=== PATIENT | female | born 1945 | race Caucasian/White ===

== ENCOUNTER 2016-08-25 01:14 | Inpatient (IN) | payer MEDICARE ==
[~2016-08-25] VITALS: Ht 167.6 cm; Wt 104.8 kg
[2016-08-25] MEDS ORDERED: GLIM4TAB PO (01:34)
[2016-08-25] MEDS ORDERED: DYAZ37.5 PO (01:34)
[2016-08-25] MEDS ORDERED: ADV250INH INH (01:34)
[2016-08-25] MEDS ORDERED: METF1000 PO (01:34)
[2016-08-25] MEDS ORDERED: BENA40TA2 PO (01:34)
[2016-08-25] MEDS ORDERED: BREO1INH INH (01:34)
[2016-08-25] MEDS ORDERED: VITA250L PO (01:34)
[2016-08-25] MEDS ORDERED: NS 1,000 ML IV ONE (02:00)
[2016-08-25] MEDS: MORPHINE 4 MG/ML 1ML SYRINGE IV PRN ×2 (02:11→02:50)
[2016-08-25 02:26] LABS: ALBUMIN 3.4 GM/DL (3.2-5.2); ALKALINE PHOSPHATASE 52 U/L (45-117); ALT/SGPT 22 U/L (12-78); ANION GAP 9 MEQ/L (8-16); AST/SGOT 15 U/L (15-37); BILIRUBIN,DIRECT < 0.1 MG/DL (0.0-0.2); BILIRUBIN,TOTAL 0.3 MG/DL (0.2-1.0); BLOOD UREA NITROGEN 18 MG/DL (7-18); CALCIUM LEVEL 8.9 MG/DL (8.8-10.2); CARBON DIOXIDE LEVEL 28 MEQ/L (21-32); CHLORIDE LEVEL 101 MEQ/L (98-107); CREATININE FOR GFR 0.91 MG/DL (0.55-1.02); GLOMERULAR FILTRATION RATE > 60.0 (>39); GLUCOSE, FASTING 161 MG/DL (83-110); POTASSIUM SERUM 3.9 MEQ/L (3.5-5.1); SODIUM LEVEL 138 MEQ/L (136-145); TOTAL PROTEIN 6.8 GM/DL (6.4-8.2)
[2016-08-25 02:52] LABS: BASO # 0.2 K/mm3 (0.0-0.2); BASO % 1.1 % (0.0-1.0); EOS # 0.6 K/mm3 (0.0-0.50); EOS % 4.3 % (0.0-3.0); LARGE UNSTAINED CELL # 0.2 K/mm3 (0.0-0.4); LARGE UNSTAINED CELL % 1.1 % (0.0-4.0); LYMPH # 2.3 K/mm3 (1.5-4.5); LYMPH % 17.7 % (24.0-44.0); MEAN CORPUSCULAR HEMOGLOBIN 26.8 pg (27.0-33.0); MEAN CORPUSCULAR VOLUME 83.9 fl (80.0-96.0); MONO # 0.6 K/mm3 (0.0-0.8); MONO % 4.6 % (0.0-5.0); NEUTROPHILS # 9.4 K/mm3 (1.8-7.7); NEUTROPHILS % 71.2 % (36.0-66.0); PLATELET COUNT, AUTOMATED 272 k/mm3 (150-450); RED CELL DISTRIBUTION WIDTH 14.1 % (11.5-14.5); WHITE BLOOD COUNT 11.2 K/mm3 (4.0-10.0)
[2016-08-25] MEDS ORDERED: ISOVUE-370 76% 100ML VIAL (Q9967) As Ordered ONE (03:11)
--- NOTE | 2016-08-25 04:10 | REPUSA ---
CLINICAL HISTORY: Abdominal pain. TECHNIQUE: Multiple axial, sagittal and coronal CT images were obtained through the abdomen and pelvi s after administration of intravenous contrast material. COMMENTS: The liver is mildly enlarged but decreased attenuation without mass or defect. There is mild biliary ductal dilatation. The spleen is normal. The gallbladder is surgically absent. The pancreas is of nor mal contour and attenuation characteristics. There is no evidence of adrenal mass. Both kidneys demonstrate prompt and equal nephrograms. The kidneys are normal in size, shape and conf iguration. There is no evidence of renal or ureteral mass. No renal or ureteral calculi are identifie d. There is no hydroureter or hydronephrosis. No evidence for appendicitis. There is distal small bowel wall thickening. No evidence for small or large bowel obstruction. There is no evidence of abdominal ascites or lymphadenopathy. There is no evidence of intrinsic or extrinsic bladder mass. There is no pelvic ascites or lymphadeno angy. Hysterectomy. Images of the lung bases show no evidence of pleural or parenchymal mass. There are no pleural effusi ons. The bony structures are free of lytic or blastic lesions. Multilevel degenerative changes are seen in volving the thoracolumbar spine. Scattered calcifications are seen involving the aorta and major bran ches compatible with atherosclerosis. IMPRESSION: Thickened distal small bowel suggestive of enteritis. Cholecystectomy. Mild degenerative dilation. Thank you for your kind referral of this patient.
[2016-08-25] MEDS ORDERED: VITA500T3 PO (05:21)
[2016-08-25] MEDS ORDERED: IPRASOL4 IN (05:24)
[2016-08-25] MEDS ORDERED: FURO20TA2 PO (05:24)
[2016-08-25] MEDS ORDERED: VITA100037 PO (05:24)
[2016-08-25] MEDS ORDERED: FLON1SPR (05:24)
[2016-08-25] MEDS ORDERED: PROA1AER INH (05:24)
[2016-08-25] MEDS ORDERED: MECL25CH PO (05:24)
[2016-08-25] MEDS ORDERED: OXYB5TA PO (05:24)
[2016-08-25] MEDS ORDERED: NS 1,000 ML IV SCH (05:31)
[2016-08-25] MEDS ORDERED: ONDANSETRON 4MG/2ML VIAL (J2405) IV PRN (05:45)
--- NOTE | 2016-08-25 05:57 | HPEPDOC ---
General Date of Admission Primary Care Physician: Gordon Longoria Attending Physician: DARRELL YU MD Chief Complaint The patient is a 70-year-old female admitted with a reason for visit of Abd Pain. Source: Patient Exam Limitations: No limitations Timing/Duration: Day(s) (2) Severity: Severe Associated Symptoms: Loss of appetite, Nausea History of Present Illness 70-year-old female, history of diabetes mellitus, asthma, arthritis, presented with acute onset of for abdominal pain. Evidently pain is generally by 10 in intensity, nonradiating, associated with nausea. There is no diarrhea or constipation, fever or chills. Pain is sharp in nature. There is no hematuria. No history of kidney Danya cornerstones. Patient has history of for cholecystectomy Home Medications Scheduled (Flonase Allergy Relief) 50 Mcg/Act Spr, 2 SPRAYS NA DAILY, (Reported) Benazepril HCl (Benazepril HCl) 40 Mg Tab, 40 MG PO DAILY, (Reported) Cyanocobalamin (Vitamin B-12) 500 Mcg Tab, 500 MCG PO DAILY, (Reported) Fluticasone/Vilanterol (Breo Ellipta 100-25 Mcg/INH) 1 Inh Inh, 1 PUFF INH DAILY , (Reported) Glimepiride (Glimepiride) 4 Mg Tab, 4 MG PO QPM, (Reported) Hydrochlorothiazide W/Triamter (Dyazide 37.5-25 mg) 1 Cap Cap, 1 CAP PO DAILY, ( Reported) Metformin Hydrochloride (Metformin HCl) 1,000 Mg Tab, 1,000 MG PO BID, (Reported ) Oxybutynin Chloride (Oxybutynin Chloride) 5 Mg Tab, 5 MG PO BID, (Reported) Vitamin D (Vitamin D) 1,000 Unit Cap, 1,000 UNIT PO DAILY, (Reported) Scheduled PRN Albuterol Sulfate (Proair Hfa) 108 Mcg/Act Aer, 2 PUFF INH Q4H PRN for SHORTNESS OF BREATH, (Reported) Albuterol/Ipratropium (Ipratropium [place]/Albut 0.5-2.5 (3) mg/3Ml) 1 Elizabeth Elizabeth, 1 VIAL IN QID PRN for SHORTNESS OF BREATH, (Reported) Furosemide (Furosemide) 20 Mg Tab, 20 MG PO DAILY PRN for LEG SWELLING, ( Reported) Meclizine Hcl (Meclizine HCl) 25 Mg Chw, 25 MG PO BID PRN for VERTIGO/DIZZINESS, (Reported) Allergies Coded Allergies: Codeine (Verified Allergy, Severe, DIFFICULTY BREATHING, 05/19/13) HMG-CoA-R Inhibitors (Verified Adverse Reaction, Intermediate, MUSCLE ACHES, 05/19/13) Past Medical History Medical History Diabetes mellitus, asthma, arthritis Surgical History Cholecystectomy, hysterectomy, ankle surgery, renal stent Family History Significant Family History: Renal disease Social History * Smoker: Denies Alcohol: Denies Drugs: denies Recent Travel/Sick Contacts: Denies: Recent travel, Recent sick contacts Psychosocial History: No pertinent psych hx Review of Symptoms Constitutional: Denies: Chills, Fever, Night Sweats Eyes: Denies: Pain, Vision change ENT: Denies: Head Aches, Ear Pain, Dysphagia Skin: Denies: Rash, Lesions, Breakdown Pulmonary: Denies: Dyspnea, Cough Cardiovascular: Denies: Chest Pain, Palpitations, Orthopnea, Paroxysmal Noc. Dyspnea, Lt Headedness Gastrointestinal: Reports: Nausea, Abdominal Pain, Denies: Vomiting, Diarrhea Genitourinary: Denies: Dysuria, Frequency, Incontinence, Retention Hematologic: Denies: Bruising, Bleeding Excessively Musculoskeletal: Denies: Neck Pain, Back Pain, Joint Pain, Muscle Pain, Spasms Neurological: Denies: Weakness, Numbness, Change in speech, Confusion Psych: Reports: Mood Normal, Denies: Depression, Memory Issues Physical Examination General Exam: Positive: Alert, Moderate Distress Eye Exam: Positive: PERRLA, Conjunctiva & lids normal, EOMI, Negative: Sclera icteric ENT Exam: Positive: Atraumatic, Mucous membr. moist/pink, Pharynx Normal Neck Exam: Positive: Supple, Negative: JVD, thyromegaly Chest Exam: Positive: Clear to auscultation, Normal air movement Heart Exam: Positive: Rate Normal, Regular Rhythm, Normal S1, Normal S2, Negative: Murmurs, Rubs Telemetry: Positive: No significant arrhythmia Abdomen Exam: Positive: BS Hypoactive, Soft, Tenderness, Negative: Hepatospenomegaly Extremity Exam: Positive: Normal pulses, Negative: Clubbing, Cyanosis, Edema Skin Exam: Positive: Nl turgor and temperature, Negative: Breakdown, Lesion Neuro Exam: Positive: Normal Speech, Cranial Nerves 3-12 NL, Reflexes 2+ Psych Exam: Positive: Mental status NL, Mood NL, Oriented x 3 Vital Signs Vital Signs Date Time Temp Pulse Resp B/P (MAP) Pulse Ox O2 Delivery O2 Flow Rate FiO2 08/25/16 03:55 16 90 08/25/16 03:54 90 08/25/16 03:04 118/58 (78) 08/25/16 01:21 98.2 Room Air Laboratory Data Labs 24H Laboratory Tests 2 08/25/16 01:46: White Blood Count 11.2H, Red Blood Count 4.92, Hemoglobin 13.2, Hematocrit 41.3 , Mean Corpuscular Volume 83.9, Mean Corpuscular Hemoglobin 26.8L, Mean Corpuscular Hemoglobin Concent 32.0, Red Cell Distribution Width 14.1, Platelet Count 272, Neutrophils (%) (Auto) 71.2H, Lymphocytes (%) (Auto) 17.7L, Monocytes (%) (Auto) 4.6, Eosinophils (%) (Auto) 4.3H, Basophils (%) (Auto) 1.1H , Neutrophils # (Auto) 9.4H, Lymphocytes # (Auto) 2.3, Monocytes # (Auto) 0.6, Eosinophils # (Auto) 0.6H, Basophils # (Auto) 0.2, Large Unclassified Cells % 1.1, Large Unclassified Cells # 0.2, Urine Appearance CLEAR, Urine Color STRAW, Urine pH 5.0, Urine Specific [place] 1.009, Urine Protein NEGATIVE, Urine Glucose (UA) NEGATIVE, Urine Ketones NEGATIVE, Urine Urobilinogen 0.2, Urine Bilirubin NEGATIVE, Urine Leukocyte Esterase 2+H, Urine Blood NEGATIVE, Urine Nitrite NEGATIVE, Urine WBC (Auto) 13H, Urine RBC (Auto) 1, Urine Hyaline Casts (Auto) 0, Urine Bacteria (Auto) 1+H, Urine Squamous Epithelial Cells 0, Urine Sperm (Auto) , Anion Gap 9, Glomerular Filtration Rate > 60.0, Lactic Acid Level 1.8, Calcium Level 8.9, Aspartate Amino Transf (AST/SGOT) 15, Alanine Aminotransferase (ALT/SGPT) 22, Alkaline Phosphatase 52, Total Bilirubin 0.3, Direct Bilirubin < 0.1, Total Creatine Kinase 48, Creatine Kinase MB 1.0, Creatine Kinase MB Relative Index 2.08, Troponin I < 0.02, Total Protein 6.8, Albumin 3.4, Albumin/Globulin Ratio 1.00, Lipase 653H CBC/BMP Laboratory Tests 08/25/16 01:46 Red Blood Count 4.92, Mean Corpuscular Volume 83.9, Mean Corpuscular Hemoglobin 26.8 L, Mean Corpuscular Hemoglobin Concent 32.0, Red Cell Distribution Width 14.1, Neutrophils (%) (Auto) 71.2 H, Lymphocytes (%) (Auto) 17.7 L, Monocytes (% ) (Auto) 4.6, Eosinophils (%) (Auto) 4.3 H, Basophils (%) (Auto) 1.1 H, Neutrophils # (Auto) 9.4 H, Lymphocytes # (Auto) 2.3, Monocytes # (Auto) 0.6, Eosinophils # (Auto) 0.6 H, Basophils # (Auto) 0.2 Microbiology Microbiology 08/25/16 Blood Culture, Received Pending 08/25/16 Blood Culture, Received Pending 08/25/16 Urine Culture, Received Pending Assessment/Plan 70-year-old female, history of for diabetes mellitus arthritis, presented with abdominal pain and found to have pancreatitis and enteritis Problems (1) Acute pancreatitis Status: Acute Problem Text: Lipase 653 . Continue nothing by mouth, IV normal saline at 100 mL per hour. TREND Lipase (2) Enteritis Problem Text: CT abdomen showed Thickened distal small bowel suggestive of enteritis thickened distal small bowel suggestive of enteritis. started IV Cipro and Flagyl Plan / VTE VTE Prophylaxis Ordered?: Yes Plan Diet: Make NPO Activity: Continue Current Anticipated Discharge: Home NATALIE SAMSON MD Aug 25, 2016 05:57
[2016-08-25] MEDS: metroNIDAZOLE 500 MG in APPROPRIATE DILUENT 1 EA IV SCH ×3 (06:00→21:27)
[2016-08-25 08:00] VITALS: BP 146/84
[2016-08-25] MEDS: HEPARIN SOD (PORCINE) 5000 UNITS/ML VIAL SC SCH ×3 (08:58→21:29)
[2016-08-25] MEDS: CIPROFLOXACIN 400 MG in APPROPRIATE DILUENT 1 EA IV SCH ×2 (08:58→20:06)
[2016-08-25] MEDS: ADVAIR DISKUS 250/50 INH PWD INH SCH ×2 (09:00→19:35)
[2016-08-25] MEDS: ACETAMINOPHEN TAB 650MG DOSE (2X325MG) PO PRN ×2 (09:18→17:53)
[2016-08-25 14:00] VITALS: BP 134/74
[2016-08-25] MEDS ORDERED: IPRATROPIUM 0.5MG/ALBUTEROL 2.5MG INH SOL UD 3ML (DUONEB)(J7620) INH PRN (14:00)
[2016-08-25] MEDS ORDERED: FUROSEMIDE 20 MG TAB PO PRN (14:00)
[2016-08-25] MEDS ORDERED: ALBUTEROL 90 MCG/ACT 8GM HFA INHALER INH PRN (14:00)
--- NOTE | 2016-08-25 14:05 | IPNPDOC ---
Text Note Date of Service The patient was seen on 08/25/16. NOTE Subjective: Patient is a 70 year old female with a PMHx of Asthma, NIDDM2, Overactive bladder, HTN, Osteoarthritis and Vitamin D deficiency who presented to the ER with complaints of 1 day history of abdominal pain. She noted her abdominal pain was at the L and R LQ, noted initially as a 10/10, burning / sharp like pain. She noted that she was nauseated, but no vomiting. She denied any constipation, diarrhea or fevers at home. She was admitted to the floor for enteritis and possible pancreatitis. Patient was seen and examined at the bedside. She notes her abdominal pain has been resolving. She is no longer having any nausea. Objective: Vitals (See below) General: Lying in bed, no acute distress, comfortable, AAOx3 HEENT: NC, AT CVS: RRR, +S1S2 Lungs: Fair air entry b/l, -w/r/r Abdomen: Soft, ND, no tenderness elicited on physical exam, +BSx4 Extremities: +PPx4, - Edema, - Calf tenderness Assessment and plan: 1. Abdominal pain - likely 2/2 enteritis, less likely 2/2 acute pancreatitis - Presented with one day history of lower abdominal pain and nausea - Denied history of vomiting, diarrhea or fevers - Physical currently did not reveal any abdominal tenderness - Labs reveals elevation in Lipase of 653 (<3x upper limit of normal) - CT abdomen/pelvis 08/25: thickened distal small bowel - suggestive of enteritis , cholecystectomy, mild degenerative dilation - Has been started on Ciprofloxacin / Flagyl in ER and received aggressive IV fluid hydration - Will stop IV fluids at this time - Will start on Liquid clear diet 2. Asthma - c/w Albuterol PRN - Will substitute Breo with Advair while inpatient 3. NIDDM2 - Will hold home oral medications - Will start ISS 4. Overactive bladder - Will c/w oxybutynin 5. HTN - BP well controlled - Will hold diuretics for now - c/w Benazapril with holding parameters 6. Osteoarthritis - c/w Tylenol PRN 7. Vitamin D deficiency - c/w Vitamin D supplementation 8. GI prophylaxis - will start protonix 9. DVT prophylaxis - c/w Heparin VS,Fishbone, I+O VS, Fishbone, I+O Laboratory Tests 08/25/16 01:46 Red Blood Count 4.92, Mean Corpuscular Volume 83.9, Mean Corpuscular Hemoglobin 26.8 L, Mean Corpuscular Hemoglobin Concent 32.0, Red Cell Distribution Width 14.1, Neutrophils (%) (Auto) 71.2 H, Lymphocytes (%) (Auto) 17.7 L, Monocytes (% ) (Auto) 4.6, Eosinophils (%) (Auto) 4.3 H, Basophils (%) (Auto) 1.1 H, Neutrophils # (Auto) 9.4 H, Lymphocytes # (Auto) 2.3, Monocytes # (Auto) 0.6, Eosinophils # (Auto) 0.6 H, Basophils # (Auto) 0.2 Vital Signs Date Time Temp Pulse Resp B/P (MAP) Pulse Ox O2 Delivery O2 Flow Rate FiO2 08/25/16 10:00 Room Air 08/25/16 08:00 20 08/25/16 08:00 97.2 74 146/84 (104) 93 DARRELL YU MD Aug 25, 2016 14:05
[2016-08-25] MEDS ORDERED: GLUCAGON FOR INJ 1 MG VIAL (J1610) SC PRN (14:15)
[2016-08-25] MEDS ORDERED: DEXTROSE 50% 50 ML SYRINGE IV PRN (14:15)
[2016-08-25] MEDS ORDERED: GLUCOSE 4 GM CHEW TABLET PO PRN (14:15)
[2016-08-25 14:33] VITALS: BP 134/74
[2016-08-25] MEDS: BENAZEPRIL 20 MG TAB PO SCH (14:33)
[2016-08-25] MEDS: oxyBUTYnin 5 MG TAB PO SCH ×2 (14:33→20:07)
[2016-08-25] MEDS: PANTOPRAZOLE 40MG TAB (PROTONIX) PO SCH (14:33)
[2016-08-25] MEDS: CYANOCOBALAMIN 500 MCG TAB PO SCH (14:33)
[2016-08-25] MEDS: VITAMIN D 1,000 INTERNATIONAL UNITS TABLET PO SCH (14:38)
[2016-08-25] MEDS: FLUTICASONE PROP 0.05% NASAL SPRAY 16 GM (FLONASE) SCH (16:45)
[2016-08-25] MEDS: HumaLOG INSULIN (NovoLOG) PER UNIT SC SCH (17:47)
[2016-08-25 20:13] VITALS: BP 122/59
[2016-08-25] MEDS ORDERED: HumaLOG INSULIN (NovoLOG) PER UNIT SC SCH (21:00)
[2016-08-26] MEDS: metroNIDAZOLE 500 MG in APPROPRIATE DILUENT 1 EA IV SCH (05:10)
[2016-08-26] MEDS: HEPARIN SOD (PORCINE) 5000 UNITS/ML VIAL SC SCH (05:10)
[2016-08-26 05:22] VITALS: BP 145/68
[2016-08-26] MEDS: ACETAMINOPHEN TAB 650MG DOSE (2X325MG) PO PRN (06:17)
[2016-08-26 06:19] LABS: MEAN CORPUSCULAR HEMOGLOBIN 27.8 pg (27.0-33.0); MEAN CORPUSCULAR VOLUME 84.3 fl (80.0-96.0); RED CELL DISTRIBUTION WIDTH 14.5 % (11.5-14.5); WHITE BLOOD COUNT 6.2 K/mm3 (4.0-10.0)
[2016-08-26 06:45] LABS: ALBUMIN 2.9 GM/DL (3.2-5.2); ALKALINE PHOSPHATASE 46 U/L (45-117); ALT/SGPT 20 U/L (12-78); ANION GAP 5 MEQ/L (8-16); AST/SGOT 17 U/L (15-37); BILIRUBIN,TOTAL 0.2 MG/DL (0.2-1.0); BLOOD UREA NITROGEN 9 MG/DL (7-18); CALCIUM LEVEL 8.4 MG/DL (8.8-10.2); CARBON DIOXIDE LEVEL 30 MEQ/L (21-32); CHLORIDE LEVEL 109 MEQ/L (98-107); CREATININE FOR GFR 0.75 MG/DL (0.55-1.02); GLOMERULAR FILTRATION RATE > 60.0 (>39); GLUCOSE, FASTING 169 MG/DL (83-110); MAGNESIUM LEVEL 1.8 MG/DL (1.8-2.4); SODIUM LEVEL 144 MEQ/L (136-145); TOTAL PROTEIN 5.8 GM/DL (6.4-8.2)
[2016-08-26] MEDS: HumaLOG INSULIN (NovoLOG) PER UNIT SC SCH (07:48)
[2016-08-26] MEDS: VITAMIN D 1,000 INTERNATIONAL UNITS TABLET PO SCH (07:48)
[2016-08-26] MEDS: oxyBUTYnin 5 MG TAB PO SCH (07:48)
[2016-08-26] MEDS: CYANOCOBALAMIN 500 MCG TAB PO SCH (07:48)
[2016-08-26] MEDS: PANTOPRAZOLE 40MG TAB (PROTONIX) PO SCH (07:48)
[2016-08-26] MEDS: CIPROFLOXACIN 400 MG in APPROPRIATE DILUENT 1 EA IV SCH (07:49)
[2016-08-26] MEDS: BENAZEPRIL 20 MG TAB PO SCH (07:49)
[2016-08-26] MEDS: ADVAIR DISKUS 250/50 INH PWD INH SCH (07:56)
[2016-08-26] MEDS: FLUTICASONE PROP 0.05% NASAL SPRAY 16 GM (FLONASE) SCH (09:00)
[2016-08-26] MEDS ORDERED: FLAG500T PO (10:06)
[2016-08-26] MEDS ORDERED: CIPR250T3 PO (10:06)
--- NOTE | 2016-08-26 19:26 | DSES ---
DATE OF ADMISSION: 08/26/2015 DATE OF DISCHARGE: 08/26/2016 ATTENDING PHYSICIAN: Douglas Dalal MD PRIMARY CARE PROVIDER: Unknown. REFERRING PHYSICIAN: None. CONSULTING PHYSICIANS: None. CONDITION ON DISCHARGE: Stable. FINAL DIAGNOSES: Abdominal pain likely secondary to enteritis, less likely secondary to acute pancreatitis. PROCEDURES: None. HISTORY OF PRESENT ILLNESS: The patient is a 70-year-old female with a past medical history of asthma and non-insulin dependent diabetes mellitus type 2, overactive bladder, hypertension, osteoarthritis and vitamin D deficiency who presented to the emergency room with complaints of one day history of abdominal pain. She noted that her abdominal pain was in the left and right lower quadrants and noted initially a 10 out of 10, burning and sharp-like pain. She noted that she was nauseated, but did not vomit. She denies any constipation, diarrhea or fever at home. She was admitted to the floor for enteritis and possible pancreatitis. HOSPITAL COURSE: 1. Abdominal pain, likely enteritis, less likely acute pancreatitis presented with one day history of lower abdominal pain and nausea. Denied history of vomiting, diarrhea or fevers. Physical did not reveal any abdominal tenderness. Labs revealed initially a lipase of 653 which is not greater than 3 times the upper limits of normal to suggest pancreatitis. On discharge her lipase levels have normalized. CT scan of her abdomen and pelvis on 08/25/2016 noted that there was thickened distal small bowel suggestive of enteritis. There was also noted to be cholecystectomy and mild degenerative dilatation, however, there is no notes on the pancreas. The patient was started on ciprofloxacin and Flagyl in the emergency room and received a dose of IV fluid hydration. On day 1 of her hospital course, IV fluids were discontinued and the patient was advanced on her diet. The patient will be continued with ciprofloxacin and Flagyl upon discharge for completion of 7 day duration. 2. Asthma. Continue albuterol as needed. Will substitute Breo for Advair while inpatient. 3. Non-insulin dependent diabetes mellitus type 2. Will hold oral medications. Will start insulin sliding scale while inpatient. 4. Overactive bladder. Will continue with oxybutynin. 5. Hypertension. Blood pressure remains well controlled. Will hold diuretics for now. Continue with benazepril with holding parameters. 6. Osteoarthritis. Continue with Tylenol as needed. 7. Vitamin D deficiency. Will continue vitamin D supplementation. 8. Gastrointestinal (GI) prophylaxis. Protonix was instituted. 9. Deep venous thrombosis (DVT) prophylaxis. Continue with heparin subcutaneous. DISCHARGE MEDICATIONS: The patient is being discharged on the following medication list: - albuterol 2 puffs inhaled every 4 hours as needed shortness of breath. - benazepril 40 mg by mouth daily - vitamin B12 500 mcg by mouth daily - Flonase two sprays in each nostril daily - Breo on puff inhaled daily - furosemide 20 mg by mouth daily - glimepiride 4 mg by mouth every evening - hydrochlorothiazide with triamterine 1 capsule by mouth daily - meclizine 25 mg by mouth twice a day as needed vertigo - metformin 1000 mg by mouth twice a day - oxybutynin 5 mg by mouth twice a day - vitamin D 1000 units by mouth every daily NEW MEDICATIONS PRESCRIBED: Include: - ciprofloxacin 250 mg by mouth twice a day for the next four days - metronidazole 500 mg by mouth three times a day for the next four days DISCHARGE INSTRUCTIONS: The patient has been advised to followup with her primary care provider in the next 7 days. She is advised to remain compliant with her treatment pain and medications and return to the emergency room if she experiences any problems. TIME SPENT ON DISCHARGE: 35 minutes.
== END 2016-08-26 11:29 | disposition home or self-care (01) | DRG 392 ==
LOC: EDBD 01:14 → M ED 01:38 → M ED INP 05:31 → M MSPAV 07:50
PROVIDERS: ADMIT Internal Medicine; ATTEND Internal Medicine
DX: K52.9 Noninfective gastroenteritis and colitis, unspecified (principal); J45.909 Unspecified asthma, uncomplicated; E11.9 Type 2 diabetes mellitus without complications; I10 Essential (primary) hypertension; M19.90 Unspecified osteoarthritis, unspecified site; E55.9 Vitamin D deficiency, unspecified; N32.81 Overactive bladder; Z79.899 Other long term (current) drug therapy; Z88.5 Allergy status to narcotic agent